=== PATIENT | male | born 1980 | race Caucasian/White ===

== ENCOUNTER 2018-10-23 14:32 | Inpatient (IN) | payer OTHER ==
[~2018-10-23] VITALS: Ht 185.4 cm; Wt 88.2 kg
--- NOTE | 2018-10-23 15:09 | EKG ---
[facility] [address] [place] [address] Test Date: 2018-10-23 Test Time: 14:39:55 Pat Name: MARTINE BROWN Department: Room: Gender: M [employer]: : 1980 Requested By: EDE WOODWARD Order Number: [id number] Reading MD: Syed Wooten Measurements Intervals [place] Rate: 74 P: 42 TN: 132 QRS: 42 QRSD: 94 T: 52 QT: 360 QTc: 400 Interpretive Statements SINUS RHYTHM Electronically Signed On 10-27-2018 9:21:13 CDT by Syed Wooten
--- NOTE | 2018-10-23 15:26 | PHYS DOC ---
Past Medical History Past Medical History: Anxiety, Asthma (ANASTACIO LIMA APRN) Past Surgical History: Other Additional Past Surgical Histo: LEFT ACL REPAIR (ANASTACIO LIMA APRN) Additional Information: CURRENTLY VAPES Alcohol Use: Occasionally Additional Information: 1 DRINK/DAY Drug Use: Marijuana (ANASTACIO LIMA APRN) Adult General Chief Complaint Chief Complaint: CHEST PAIN HPI HPI 38-year-old male presents to ER with complaints of chest tightness which started last night. He reports he has been under stress since divorce in May and so occasionally smokes marijuana. He reports he felt some tightness in his back. He reports he came to ER as today while at work he went on break and while walking again had onset of chest tightness. Pt reports he drove to [place] 3 wks ago. Pt reports he vapes and typically has 1-2 alcoholic beverages nightly. He reports he did mushrooms a few wks ago- denies other illicit drug use. (ANSATACIO LIMA APRN) Review of Systems Review of Systems Constitutional: Denies fever or chills [] Eyes: Denies change in visual acuity, redness, or eye pain [] HENT: Denies nasal congestion or sore throat [] Respiratory: Denies cough or shortness of breath [] Cardiovascular: Reports intermittent chest tightness- denies currently GI: Denies abdominal pain, nausea, vomiting, bloody stools or diarrhea [] : Denies dysuria or hematuria [] Musculoskeletal: Denies neck pain or joint pain. Reports had some tightness in his back with onset of chest tightness- denies currently Integument: Denies rash, swelling or skin lesions [] Neurologic: Denies headache, focal weakness or sensory changes [] Endocrine: Denies polyuria or polydipsia [] Psych: Reports anxiety/stress- denies SI All other systems were reviewed and found to be within normal limits, except as documented in this note. (ANASTACIO LIMA APRN) Current Medications Current Medications Current Medications Medications (Trade) Dose Ordered Sig/Matt Start Time Stop Time Status Last Admin Dose Admin Sodium Chloride 1,000 ml @ 1,000 mls/hr 1X ONCE 10/23/18 16:00 10/23/18 16:59 DC 10/23/18 16:02 1,000 MLS/HR (EDE MCNAIR MD) Allergies Allergies Allergies Coded Allergies Type Severity Reaction Last Updated Verified Penicillins Allergy Intermediate Rash 10/23/18 Yes Sulfa (Sulfonamide Antibiotics) Allergy Intermediate Rash 10/23/18 Yes (EDE MCNAIR MD) Physical Exam Physical Exam Constitutional: Well developed, well nourished, no acute distress, non-toxic appearance. [] HENT: Normocephalic, atraumatic, oropharynx moist, no oral exudates, nose normal. [] Eyes: Pupils equal, conjunctiva normal, no discharge. [] Neck: Normal range of motion, no tenderness, supple, no stridor. [] Cardiovascular: Heart rate regular rhythm, no murmur [] Lungs & Thorax: Bilateral breath sounds clear to auscultation- resp. equal/nonlabored Abdomen: Bowel sounds normal, soft, no tenderness, no masses, no pulsatile masses. [] Skin: Warm, dry, no erythema, no rash. [] Back: No tenderness, no CVA tenderness. [] Extremities: No tenderness, no cyanosis, no clubbing, ROM intact, no edema. [] Neurologic: Alert and oriented X 3, normal motor function, normal sensory function, no focal deficits noted. [] Psychologic: Affect normal, judgement normal, mood normal. [] (REFFITT,ANASTACIO Linares APRN) Current Patient Data Vital Signs Vital Signs Date Time Temp Pulse Resp B/P (MAP) Pulse Ox O2 Delivery O2 Flow Rate FiO2 10/23/18 15:45 74 18 116/69 (85) 97 Room Air 10/23/18 14:47 98.2 98.2 (EDE MCNAIR MD) Lab Values Laboratory Tests Test 10/23/18 15:43 10/23/18 16:00 White Blood Count 10.6 x10^3/uL (4.0-11.0) Red Blood Count 4.99 x10^6/uL (4.30-5.70) Hemoglobin 15.7 g/dL (13.0-17.5) Hematocrit 46.3 % (39.0-53.0) Mean Corpuscular Volume 93 fL (79-100) Mean Corpuscular Hemoglobin 31 pg (25-35) Mean Corpuscular Hemoglobin Concent 34 g/dL (31-37) Red Cell Distribution Width 13.0 % (11.5-14.5) Platelet Count 274 x10^3/uL (140-400) Neutrophils (%) (Auto) 56 % (31-73) Lymphocytes (%) (Auto) 32 % (24-48) Monocytes (%) (Auto) 9 % (0-9) Eosinophils (%) (Auto) 3 % (0-3) Basophils (%) (Auto) 1 % (0-3) Neutrophils # (Auto) 5.9 x10^3uL (1.8-7.7) Lymphocytes # (Auto) 3.3 x10^3/uL (1.0-4.8) Monocytes # (Auto) 0.9 x10^3/uL (0.0-1.1) Eosinophils # (Auto) 0.3 x10^3/uL (0.0-0.7) Basophils # (Auto) 0.1 x10^3/uL (0.0-0.2) Prothrombin Time 13.4 SEC (11.7-14.0) Prothrombin Time INR 1.1 (0.8-1.1) D-Dimer (Valeria) < 0.27 ug/mlFEU Sodium Level 140 mmol/L (136-145) Potassium Level 4.1 mmol/L (3.5-5.1) Chloride Level 102 mmol/L (98-107) Carbon Dioxide Level 30 mmol/L (21-32) Anion Gap 8 (6-14) Blood Urea Nitrogen 21 mg/dL (8-26) Creatinine 1.0 mg/dL (0.7-1.3) Estimated GFR (Cockcroft-Gault) 83.2 BUN/Creatinine Ratio 21 (6-20) H Glucose Level 92 mg/dL (70-99) Calcium Level 9.4 mg/dL (8.5-10.1) Magnesium Level 2.0 mg/dL (1.8-2.4) Total Bilirubin 0.5 mg/dL (0.2-1.0) Aspartate Amino Transferase (AST) 19 U/L (15-37) Alanine Aminotransferase (ALT) 20 U/L (16-63) Alkaline Phosphatase 76 U/L (46-116) Troponin I Quantitative 0.217 ng/mL (0.000-0.055) Total Protein 7.6 g/dL (6.4-8.2) Albumin 3.9 g/dL (3.4-5.0) Albumin/Globulin Ratio 1.1 (1.0-1.7) Urine Collection Type Unknown Urine Color Yellow Urine Clarity Clear Urine pH 7.0 Urine Specific [place] 1.020 Urine Protein Negative mg/dL (NEG-TRACE) Urine Glucose (UA) Negative mg/dL (NEG) Urine Ketones (Stick) Negative mg/dL (NEG) Urine Blood Negative (NEG) Urine Nitrite Negative (NEG) Urine Bilirubin Negative (NEG) Urine Urobilinogen Dipstick 0.2 mg/dL (0.2 mg/dL) Urine Leukocyte Esterase Negative (NEG) Urine RBC 0 /HPF (0-2) Urine WBC 0 /HPF (0-4) Urine Amorphous Sediment Present /HPF Urine Bacteria 0 /HPF (0-FEW) Urine Mucus Mod /LPF Urine Opiates Screen Neg (NEG) Urine Methadone Screen Neg (NEG) Urine Barbiturates Neg (NEG) Urine Phencyclidine Screen Neg (NEG) Urine Amphetamine/Methamphetamine Neg (NEG) Urine Benzodiazepines Screen Neg (NEG) Urine Cocaine Screen Neg (NEG) Urine Cannabinoids Screen Pos (NEG) Urine Ethyl Alcohol Neg (NEG) Laboratory Tests 10/23/18 15:43 Laboratory Tests 10/23/18 15:43 (EDE MCNAIR MD) Lab Values Laboratory Tests Test 10/23/18 15:43 10/23/18 16:00 White Blood Count 10.6 x10^3/uL (4.0-11.0) Red Blood Count 4.99 x10^6/uL (4.30-5.70) Hemoglobin 15.7 g/dL (13.0-17.5) Hematocrit 46.3 % (39.0-53.0) Mean Corpuscular Volume 93 fL (79-100) Mean Corpuscular Hemoglobin 31 pg (25-35) Mean Corpuscular Hemoglobin Concent 34 g/dL (31-37) Red Cell Distribution Width 13.0 % (11.5-14.5) Platelet Count 274 x10^3/uL (140-400) Neutrophils (%) (Auto) 56 % (31-73) Lymphocytes (%) (Auto) 32 % (24-48) Monocytes (%) (Auto) 9 % (0-9) Eosinophils (%) (Auto) 3 % (0-3) Basophils (%) (Auto) 1 % (0-3) Neutrophils # (Auto) 5.9 x10^3uL (1.8-7.7) Lymphocytes # (Auto) 3.3 x10^3/uL (1.0-4.8) Monocytes # (Auto) 0.9 x10^3/uL (0.0-1.1) Eosinophils # (Auto) 0.3 x10^3/uL (0.0-0.7) Basophils # (Auto) 0.1 x10^3/uL (0.0-0.2) Prothrombin Time 13.4 SEC (11.7-14.0) Prothrombin Time INR 1.1 (0.8-1.1) D-Dimer (Valeria) < 0.27 ug/mlFEU Sodium Level 140 mmol/L (136-145) Potassium Level 4.1 mmol/L (3.5-5.1) Chloride Level 102 mmol/L (98-107) Carbon Dioxide Level 30 mmol/L (21-32) Anion Gap 8 (6-14) Blood Urea Nitrogen 21 mg/dL (8-26) Creatinine 1.0 mg/dL (0.7-1.3) Estimated GFR (Cockcroft-Gault) 83.2 BUN/Creatinine Ratio 21 (6-20) H Glucose Level 92 mg/dL (70-99) Calcium Level 9.4 mg/dL (8.5-10.1) Magnesium Level 2.0 mg/dL (1.8-2.4) Total Bilirubin 0.5 mg/dL (0.2-1.0) Aspartate Amino Transferase (AST) 19 U/L (15-37) Alanine Aminotransferase (ALT) 20 U/L (16-63) Alkaline Phosphatase 76 U/L (46-116) Troponin I Quantitative 0.217 ng/mL (0.000-0.055) Total Protein 7.6 g/dL (6.4-8.2) Albumin 3.9 g/dL (3.4-5.0) Albumin/Globulin Ratio 1.1 (1.0-1.7) Urine Collection Type Unknown Urine Color Yellow Urine Clarity Clear Urine pH 7.0 Urine Specific [place] 1.020 Urine Protein Negative mg/dL (NEG-TRACE) Urine Glucose (UA) Negative mg/dL (NEG) Urine Ketones (Stick) Negative mg/dL (NEG) Urine Blood Negative (NEG) Urine Nitrite Negative (NEG) Urine Bilirubin Negative (NEG) Urine Urobilinogen Dipstick 0.2 mg/dL (0.2 mg/dL) Urine Leukocyte Esterase Negative (NEG) Urine RBC 0 /HPF (0-2) Urine WBC 0 /HPF (0-4) Urine Amorphous Sediment Present /HPF Urine Bacteria 0 /HPF (0-FEW) Urine Mucus Mod /LPF Laboratory Tests 10/23/18 15:43 Laboratory Tests 10/23/18 15:43 (ANASTACIO LIMA APRN) EKG EKG EKG obtained 10/23/18 at [address] Mcnair Sinus rhythm Rate 74 No STEMI (ANASTACIO LIMA APRN) Radiology/Procedures Radiology/Procedures PROCEDURE: PORTABLE CHEST 1V EXAM: Chest, single view. HISTORY: Chest pain. COMPARISON: None. FINDINGS: A frontal view of the chest is obtained. There is no infiltrate, pleural effusion or pneumothorax. The heart is normal in size. IMPRESSION: No acute pulmonary finding. Electronically signed by: Veronica Vidales MD (10/23/2018 3:35 PM) [place] [id number] DICTATED and SIGNED BY: VERONICA VIDALES MD DATE: 10/23/181534 (ANASTACIO LIMA APRN) Course & Med Decision Making Course & Med Decision Making Pertinent Labs and Imaging studies reviewed. (See chart for details) 1620: Discussed test results with pt- EKG with no acute ST elevation/STEMI- his troponin is elevated at 0.217- he continues to deny any CP/tightness. Chest xray with no acute findings. Other labs unremarkable. Pt had orthostatic VS which were NL. IV fld bolus was given as pt had reported he hasn't been drinking as much water and does typically have 1-2 alcohol beverages nightly. Discussed admission plan with pt for serial cardiac enzymes and further monitoring- he is agreeable with plan. Will admit to hospitalist and consult cardiology with admit orders. Pt reports he took 325mg aspirin this morning. DDimer is pending. 1630: Spoke with Dr. Taylor, hospitalist and discussed patient's case and admit plan. Pt's d-dimer was normal limit <0.27. Pt's case and plan of care was discussed with Dr. Mcnair. HEART score 2 with pt being a smoker and elevated troponin. (ANASTACIO LIMA APRN) Course & Med Decision Making Staff Physician Addendum: I was working in the ER during the course of this patient's visit. I was available for consultation as needed, but I was not directly involved in the care of this patient. (EDE MCNAIR MD) Dragon Disclaimer Dragon Disclaimer This electronic medical record was generated, in whole or in part, using a voice recognition dictation system. (ANASTACIO LIMA APRN) Departure Departure Impression: Primary Impression: Elevated troponin Additional Impression: Chest tightness Disposition: ADMITTED INPATIENT Admitting Physician: Kartik Flaherty (ANASTACIO LIMA APRN) Condition: STABLE Referrals: UNKNOWN PCP NAME (PCP) Scripts Buspirone Hcl (BUSPIRONE HCL) 5 Mg Tablet 1 TAB PO BID for anxiety for 30 Days, #60 TAB 5 Refills Prov: DOMONIQUE CASTRO MD 10/24/18 Escitalopram Oxalate (LEXAPRO) 5 Mg Tablet 5 MG PO DAILY for Anxiety for 30 Days, #30 TAB 5 Refills Prov: DOMONIQUE CASTRO MD 10/24/18 Metoprolol Succinate (METOPROLOL SUCCINATE ( XL )) 25 Mg Tab.er.24h 12.5 MG PO DAILY for SCAD for 30 Days, #15 TAB.SR 11 Refills Prov: DOMONIQUE CASTRO MD 10/24/18 Clopidogrel Bisulfate (CLOPIDOGREL) 75 Mg Tablet 75 MG PO DAILYWBKFT for SCAD for 30 Days, #30 TAB 11 Refills Prov: DOMONIQUE CASTRO MD 10/24/18 Problem Qualifiers ANASTACIO LIMA APRN Oct 23, 2018 15:26 EDE MCNAIR MD Oct 24, 2018 23:33
--- NOTE | 2018-10-23 15:38 | RAD ---
EXAM: Chest, single view. HISTORY: Chest pain. COMPARISON: None. FINDINGS: A frontal view of the chest is obtained. There is no infiltrate, pleural effusion or pneumothorax. The heart is normal in size. IMPRESSION: No acute pulmonary finding. Electronically signed by: Veronica Garduno MD (10/23/2018 3:35 PM) [place] [id number]
[2018-10-23 15:53] LABS: BASO # 0.1 x10^3/uL (0.0-0.2); BASO % 1 % (0-3); EOS # 0.3 x10^3/uL (0.0-0.7); EOS % 3 % (0-3); HEMATOCRIT 46.3 % (39.0-53.0); HEMOGLOBIN 15.7 g/dL (13.0-17.5); LYMPH # 3.3 x10^3/uL (1.0-4.8); LYMPH % 32 % (24-48); MEAN CORPUSCULAR HEMOGLOBIN 31 pg (25-35); MEAN CORPUSCULAR HGB CONC 34 g/dL (31-37); MEAN CORPUSCULAR VOLUME 93 fL (79-100); MONO # 0.9 x10^3/uL (0.0-1.1); MONO % 9 % (0-9); NEUT # 5.9 x10^3uL (1.8-7.7); NEUT % 56 % (31-73); PLATELET COUNT 274 x10^3/uL (140-400); RED BLOOD COUNT 4.99 x10^6/uL (4.30-5.70); WHITE BLOOD COUNT 10.6 x10^3/uL (4.0-11.0)
[2018-10-23] MEDS ORDERED: IV NORMAL SALINE 1000ML BAG 1,000 ML IV ONE (16:00)
[2018-10-23 16:02] LABS: CALCIUM 9.4 mg/dL (8.5-10.1); GFR 83.2; POTASSIUM 4.1 mmol/L (3.5-5.1); PROTHROMBIN TIME PATIENT 13.4 SEC (11.7-14.0)
[2018-10-23 16:08] LABS: ALBUMIN 3.9 g/dL (3.4-5.0); ALBUMIN/GLOBULIN RATIO 1.1 (1.0-1.7); TOTAL BILIRUBIN 0.5 mg/dL (0.2-1.0); TOTAL PROTEIN 7.6 g/dL (6.4-8.2)
[2018-10-23 16:14] LABS: BILIRUBIN,URINE NEGATIVE (NEG); CLARITY,URINE CLEAR; COLOR,URINE YELLOW; NITRITE,URINE NEGATIVE (NEG); PROTEIN,URINE NEGATIVE (NEG-TRACE); UROBILINOGEN,URINE 0.2 mg/dL (0.2 mg/dL)
[2018-10-23 16:21] LABS: AMORPHOUS SEDIMENT,UR PRESENT /HPF; BACTERIA,URINE 0 /HPF (0-FEW); RBC,URINE 0 /HPF (0-2); WBC,URINE 0 /HPF (0-4)
[2018-10-23 16:41] LABS: AMPHETAMINE/METHAMPHETAMINE NEG (NEG); BARBITURATES NEG (NEG); BENZODIAZEPINES NEG (NEG); CANNABINOIDS POS (NEG); COCAINE NEG (NEG); METHADONE NEG (NEG); OPIATES NEG (NEG); PHENCYCLIDINE NEG (NEG)
[2018-10-23 18:20] VITALS: BP 125/85
--- NOTE | 2018-10-23 19:31 | PDOC1 ---
History and Physical Date of Admission Date of Admission DATE: 10/23/18 TIME: 19:31 Identification/Chief Complaint Chief Complaint 38-year-old male presents to ER with complaints of chest tightness which started last night. He reports he has been under stress since divorce in May and so occasionally smokes marijuana. He reports he felt some tightness in his back. He reports he came to ER as today while at work he went on break and while walking again had onset of chest tightness. PAIN RADIATES TO RIGHT MID-ARM Pt reports he drove to [place] 3 wks ago. Pt reports he vapes and typically has 1-2 alcoholic beverages nightly. He reports he did mushrooms a few wks ago- denies other illicit drug use. Past Medical History Past Medical History Past Medical History Past Medical History Past Medical History: Anxiety, Asthma Past Surgical History: Other Additional Past Surgical Histo: LEFT ACL REPAIR Additional Information: CURRENTLY VAPES REMOTE SMOKER Alcohol Use: Occasionally Additional Information: 1 DRINK/DAY Drug Use: Marijuana family hx MS, MOTHER Family History Family History: High Cholestrol, Hypertension Social History Smoke: Quit ALCOHOL: occassional Drugs: Marijuana Current Problem List Problem List Problems Medical Problems: (1) Chest tightness Status: Acute (2) Elevated troponin Status: Acute Current Medications Current Medications Current Medications Sodium Chloride 1,000 ml @ 1,000 mls/hr 1X ONCE IV Last administered on 10/23/18at 16:02; Start 10/23/18 at 16:00; Stop 10/23/18 at 16:59; Status DC Allergies Allergies: Coded Allergies: Penicillins (Verified Allergy, Intermediate, Rash, 10/23/18) Sulfa (Sulfonamide Antibiotics) (Verified Allergy, Intermediate, Rash, 10/23/18) ROS Review of System Review of Systems Review of Systems Constitutional: Denies fever or chills [] Eyes: Denies change in visual acuity, redness, or eye pain [] HENT: Denies nasal congestion or sore throat [] Respiratory: Denies cough or shortness of breath [] Cardiovascular: Reports intermittent chest tightness- denies currently GI: Denies abdominal pain, nausea, vomiting, bloody stools or diarrhea [] : Denies dysuria or hematuria [] Musculoskeletal: Denies neck pain or joint pain. Reports had some tightness in his back with onset of chest tightness- WITH ACTIVITY Integument: Denies rash, swelling or skin lesions [] Neurologic: Denies headache, focal weakness or sensory changes [] Endocrine: Denies polyuria or polydipsia [] Psych: Reports anxiety/stress- denies SI 14 PT systems were reviewed and found to be within normal limits, except as documented Eyes: No Blurry vision, No Decreased vision, No Double vision, No Dry eyes, No Excessive tearing, No Eye Pain, No Itchy Eyes, No Loss of vision, No Photophobia, No Scotomata, No Uses contacts, No Uses glasses, No Other ALLERGY AND IMMUNOLOGY: No: Hives, Insect Bite Sensitivity, Itchy/Watery Eyes, Nasal Congestion, Post Nasal Drip, Seasonal Allergies, Other Respiratory: No: Cough, Hemoptysis, Orthopnea, Pleuritic Pain, Shortness of breath, SOB with excertion, Sputum Changes, Stridor, Tachypnea, Wheezing, Other Cardiovascular: yes Chest Pain Gastrointestinal: No Nausea, No Vomiting, No Abdominal Pain, No Diarrhea, No Constipation, No Melena, No Hematochezia, No Other Physical Exam Physical Exam Physical Exam Physical Exam Constitutional: Well developed, well nourished, no acute distress, non-toxic appearance. [] HENT: Normocephalic, atraumatic, oropharynx moist, no oral exudates, nose normal. [] Eyes: Pupils equal, conjunctiva normal, no discharge. [] Neck: Normal range of motion, no tenderness, supple, no stridor. [] Cardiovascular: Heart rate regular rhythm, no murmur [] Lungs & Thorax: Bilateral breath sounds clear to auscultation- resp. e qual/nonlabored Abdomen: Bowel sounds normal, soft, no tenderness, no masses, no pulsatile masses. [] Skin: Warm, dry, no erythema, no rash. [] Back: No tenderness, no CVA tenderness. [] Extremities: No tenderness, no cyanosis, no clubbing, ROM intact, no edema. [] Neurologic: Alert and oriented X 3, normal motor function, normal sensory function, no focal deficits noted. [] Psychologic: Affect normal, judgement normal, mood normal. [] General: Alert, Oriented X3, Cooperative HEENT: Atraumatic, PERRLA Lungs: Clear to auscultation Heart: S1S2, RRR, no thrills Breasts: Not examined Abdomen: Soft Rectal Exam: not examined Extremities: No cyanosis Skin: No significant lesion Neuro: Normal speech, Cranial nerves 3-12 NL Psych/Mental Status: Mental status NL, Mood NL Vitals Vitals Vital Signs Date Time Temp Pulse Resp B/P (MAP) Pulse Ox O2 Delivery O2 Flow Rate FiO2 10/23/18 18:20 98.0 60 16 125/85 (98) 98 Room Air 98.0 Labs Labs Laboratory Tests Test 10/23/18 15:43 10/23/18 16:00 White Blood Count 10.6 x10^3/uL (4.0-11.0) Red Blood Count 4.99 x10^6/uL (4.30-5.70) Hemoglobin 15.7 g/dL (13.0-17.5) Hematocrit 46.3 % (39.0-53.0) Mean Corpuscular Volume 93 fL (79-100) Mean Corpuscular Hemoglobin 31 pg (25-35) Mean Corpuscular Hemoglobin Concent 34 g/dL (31-37) Red Cell Distribution Width 13.0 % (11.5-14.5) Platelet Count 274 x10^3/uL (140-400) Neutrophils (%) (Auto) 56 % (31-73) Lymphocytes (%) (Auto) 32 % (24-48) Monocytes (%) (Auto) 9 % (0-9) Eosinophils (%) (Auto) 3 % (0-3) Basophils (%) (Auto) 1 % (0-3) Neutrophils # (Auto) 5.9 x10^3uL (1.8-7.7) Lymphocytes # (Auto) 3.3 x10^3/uL (1.0-4.8) Monocytes # (Auto) 0.9 x10^3/uL (0.0-1.1) Eosinophils # (Auto) 0.3 x10^3/uL (0.0-0.7) Basophils # (Auto) 0.1 x10^3/uL (0.0-0.2) Prothrombin Time 13.4 SEC (11.7-14.0) Prothromb Time International Ratio 1.1 (0.8-1.1) D-Dimer (Valeria) < 0.27 ug/mlFEU Sodium Level 140 mmol/L (136-145) Potassium Level 4.1 mmol/L (3.5-5.1) Chloride Level 102 mmol/L (98-107) Carbon Dioxide Level 30 mmol/L (21-32) Anion Gap 8 (6-14) Blood Urea Nitrogen 21 mg/dL (8-26) Creatinine 1.0 mg/dL (0.7-1.3) Estimated GFR (Cockcroft-Gault) 83.2 BUN/Creatinine Ratio 21 (6-20) Glucose Level 92 mg/dL (70-99) Calcium Level 9.4 mg/dL (8.5-10.1) Magnesium Level 2.0 mg/dL (1.8-2.4) Total Bilirubin 0.5 mg/dL (0.2-1.0) Aspartate Amino Transf (AST/SGOT) 19 U/L (15-37) Alanine Aminotransferase (ALT/SGPT) 20 U/L (16-63) Alkaline Phosphatase 76 U/L (46-116) Troponin I Quantitative 0.217 ng/mL (0.000-0.055) Total Protein 7.6 g/dL (6.4-8.2) Albumin 3.9 g/dL (3.4-5.0) Albumin/Globulin Ratio 1.1 (1.0-1.7) Urine Collection Type Unknown Urine Color Yellow Urine Clarity Clear Urine pH 7.0 Urine Specific [place] 1.020 Urine Protein Negative mg/dL (NEG-TRACE) Urine Glucose (UA) Negative mg/dL (NEG) Urine Ketones (Stick) Negative mg/dL (NEG) Urine Blood Negative (NEG) Urine Nitrite Negative (NEG) Urine Bilirubin Negative (NEG) Urine Urobilinogen Dipstick 0.2 mg/dL (0.2 mg/dL) Urine Leukocyte Esterase Negative (NEG) Urine RBC 0 /HPF (0-2) Urine WBC 0 /HPF (0-4) Urine Amorphous Sediment Present /HPF Urine Bacteria 0 /HPF (0-FEW) Urine Mucus Mod /LPF Urine Opiates Screen Neg (NEG) Urine Methadone Screen Neg (NEG) Urine Barbiturates Neg (NEG) Urine Phencyclidine Screen Neg (NEG) Urine Amphetamine/Methamphetamine Neg (NEG) Urine Benzodiazepines Screen Neg (NEG) Urine Cocaine Screen Neg (NEG) Urine Cannabinoids Screen Pos (NEG) Urine Ethyl Alcohol Neg (NEG) Laboratory Tests Test 10/23/18 15:43 10/23/18 16:00 White Blood Count 10.6 x10^3/uL (4.0-11.0) Red Blood Count 4.99 x10^6/uL (4.30-5.70) Hemoglobin 15.7 g/dL (13.0-17.5) Hematocrit 46.3 % (39.0-53.0) Mean Corpuscular Volume 93 fL (79-100) Mean Corpuscular Hemoglobin 31 pg (25-35) Mean Corpuscular Hemoglobin Concent 34 g/dL (31-37) Red Cell Distribution Width 13.0 % (11.5-14.5) Platelet Count 274 x10^3/uL (140-400) Neutrophils (%) (Auto) 56 % (31-73) Lymphocytes (%) (Auto) 32 % (24-48) Monocytes (%) (Auto) 9 % (0-9) Eosinophils (%) (Auto) 3 % (0-3) Basophils (%) (Auto) 1 % (0-3) Neutrophils # (Auto) 5.9 x10^3uL (1.8-7.7) Lymphocytes # (Auto) 3.3 x10^3/uL (1.0-4.8) Monocytes # (Auto) 0.9 x10^3/uL (0.0-1.1) Eosinophils # (Auto) 0.3 x10^3/uL (0.0-0.7) Basophils # (Auto) 0.1 x10^3/uL (0.0-0.2) Prothrombin Time 13.4 SEC (11.7-14.0) Prothromb Time International Ratio 1.1 (0.8-1.1) D-Dimer (Valeria) < 0.27 ug/mlFEU Sodium Level 140 mmol/L (136-145) Potassium Level 4.1 mmol/L (3.5-5.1) Chloride Level 102 mmol/L (98-107) Carbon Dioxide Level 30 mmol/L (21-32) Anion Gap 8 (6-14) Blood Urea Nitrogen 21 mg/dL (8-26) Creatinine 1.0 mg/dL (0.7-1.3) Estimated GFR (Cockcroft-Gault) 83.2 BUN/Creatinine Ratio 21 (6-20) Glucose Level 92 mg/dL (70-99) Calcium Level 9.4 mg/dL (8.5-10.1) Magnesium Level 2.0 mg/dL (1.8-2.4) Total Bilirubin 0.5 mg/dL (0.2-1.0) Aspartate Amino Transf (AST/SGOT) 19 U/L (15-37) Alanine Aminotransferase (ALT/SGPT) 20 U/L (16-63) Alkaline Phosphatase 76 U/L (46-116) Troponin I Quantitative 0.217 ng/mL (0.000-0.055) Total Protein 7.6 g/dL (6.4-8.2) Albumin 3.9 g/dL (3.4-5.0) Albumin/Globulin Ratio 1.1 (1.0-1.7) Urine Collection Type Unknown Urine Color Yellow Urine Clarity Clear Urine pH 7.0 Urine Specific [place] 1.020 Urine Protein Negative mg/dL (NEG-TRACE) Urine Glucose (UA) Negative mg/dL (NEG) Urine Ketones (Stick) Negative mg/dL (NEG) Urine Blood Negative (NEG) Urine Nitrite Negative (NEG) Urine Bilirubin Negative (NEG) Urine Urobilinogen Dipstick 0.2 mg/dL (0.2 mg/dL) Urine Leukocyte Esterase Negative (NEG) Urine RBC 0 /HPF (0-2) Urine WBC 0 /HPF (0-4) Urine Amorphous Sediment Present /HPF Urine Bacteria 0 /HPF (0-FEW) Urine Mucus Mod /LPF Urine Opiates Screen Neg (NEG) Urine Methadone Screen Neg (NEG) Urine Barbiturates Neg (NEG) Urine Phencyclidine Screen Neg (NEG) Urine Amphetamine/Methamphetamine Neg (NEG) Urine Benzodiazepines Screen Neg (NEG) Urine Cocaine Screen Neg (NEG) Urine Cannabinoids Screen Pos (NEG) Urine Ethyl Alcohol Neg (NEG) VTE Prophylaxis Ordered VTE Prophylaxis Devices: Yes VTE Pharmacological Prophylaxi: Yes Assessment/Plan Assessment/Plan IMPRESSION 1. CHEST PAIN 2. Mildly elevated troponin i 3. remote tobacco abuse 4. THC USE plan admit cvc serial troponin i echo cardiology consult dvt prophylaxis FLP RAFI PEREZ MD Oct 23, 2018 19:31
[2018-10-23] MEDS ORDERED: NITROGLYCERIN SUBLINGUAL 0.4 MG BOTTLE OF 25. SL PRN (19:45)
[2018-10-23] MEDS: ASPIRIN ENTERIC COATED 325 MG TABLET.DR. PO SCH (20:06)
[2018-10-23] MEDS: HEPARIN for SUB-Q USE 5,000 UNIT/ML VIAL. SQ SCH (20:13)
[2018-10-23 23:05] VITALS: BP 119/58
[2018-10-24 03:15] VITALS: BP 108/58
[2018-10-24 05:34] LABS: CHOLESTEROL/HDL RATIO 3.4
[2018-10-24] MEDS: HEPARIN for SUB-Q USE 5,000 UNIT/ML VIAL. SQ SCH (06:13)
[2018-10-24 07:00] VITALS: BP 114/68
--- NOTE | 2018-10-24 09:10 | PDOC2 ---
CINDI GHOTRA COMMERCIAL SALES DIRECTOR 10/24/18 0910: CARDIAC CONSULT DATE OF CONSULT Date of Consult DATE: 10/24/18 TIME: 08:52 REASON FOR CONSULT Reason for Consult: Elevated troponin REFERRING PHYSICIAN Referring Physician: Adolfo SOURCE Source: Chart review, Patient HISTORY OF PRESENT ILLNESS HISTORY OF PRESENT ILLNESS This is a pleasant 38 yo male admitted for complains of chest tightness. Reports the in the last 2 days he has been having chest pain. Described it as chest tightness with achy bilateral arms, SOA, and clamminess. It happened initially 3 days ago with walking. It got better with aspirin. It happened again yesterday with exertion and finally relieved with rest. Both lasted at least about 30 minutes. No significant nausea. No previous MVA, no hx of childhood heart disease, no hx of VTE. No fever or chills. He does felt lightheaded sometimes but brief and no syncope. No recent viral illness. PAST MEDICAL HISTORY Past Medical History Asthma otherwise no other significant medical hx PAST SURGICAL HISTORY Past Surgical History: Arthroscopy (left ACL repair) FAMILY HISTORY Family History None pertinent SOCIAL HISTORY Smoke: # pack years (vaping) ALCOHOL: none Drugs: Marijuana Lives: Alone CURRENT MEDICATIONS CURRENT MEDICATIONS Current Medications Medications (Trade) Dose Ordered Sig/Matt Route PRN Reason Start Time Stop Time Status Last Admin Dose Admin Sodium Chloride 1,000 ml @ 1,000 mls/hr 1X ONCE IV 10/23/18 16:00 10/23/18 16:59 DC 10/23/18 16:02 Aspirin (Ecotrin) 325 mg DAILYWBKFT PO 10/23/18 20:00 10/23/18 20:06 Heparin Sodium (Porcine) (Heparin Sodium) 5,000 unit Q8HRS SQ 10/23/18 20:00 10/24/18 06:13 ALLERGIES ALLERGIES: Coded Allergies: Penicillins (Verified Allergy, Intermediate, Rash, 10/23/18) Sulfa (Sulfonamide Antibiotics) (Verified Allergy, Intermediate, Rash, 10/23/18) ROS Review of System 14 point ROS evaluated with pertinent positives noted per HPI PHYSICAL EXAM General: Alert, Oriented X3, Cooperative, No acute distress HEENT: Atraumatic, Mucous membr. moist/pink Lungs: Clear to auscultation, Normal air movement Heart: Regular rate (SR,SB), Normal S1, Normal S2, No murmurs Abdomen: Soft, No tenderness Extremities: No cyanosis, No edema Skin: No breakdown, No significant lesion Neuro: Normal speech, Sensation intact Psych/Mental Status: Mental status NL, Mood NL MUSCULOSKELETAL: Osteoarthritic changes both hands VITALS VITALS Vital Signs Date Time Temp Pulse Resp B/P (MAP) Pulse Ox O2 Delivery O2 Flow Rate FiO2 10/24/18 03:15 97.9 56 18 108/58 (75) 97 Room Air 97.9 LABS Lab: Laboratory Tests Test 10/23/18 15:43 10/23/18 16:00 10/23/18 20:20 10/23/18 23:10 White Blood Count 10.6 x10^3/uL (4.0-11.0) Red Blood Count 4.99 x10^6/uL (4.30-5.70) Hemoglobin 15.7 g/dL (13.0-17.5) Hematocrit 46.3 % (39.0-53.0) Mean Corpuscular Volume 93 fL (79-100) Mean Corpuscular Hemoglobin 31 pg (25-35) Mean Corpuscular Hemoglobin Concent 34 g/dL (31-37) Red Cell Distribution Width 13.0 % (11.5-14.5) Platelet Count 274 x10^3/uL (140-400) Neutrophils (%) (Auto) 56 % (31-73) Lymphocytes (%) (Auto) 32 % (24-48) Monocytes (%) (Auto) 9 % (0-9) Eosinophils (%) (Auto) 3 % (0-3) Basophils (%) (Auto) 1 % (0-3) Neutrophils # (Auto) 5.9 x10^3uL (1.8-7.7) Lymphocytes # (Auto) 3.3 x10^3/uL (1.0-4.8) Monocytes # (Auto) 0.9 x10^3/uL (0.0-1.1) Eosinophils # (Auto) 0.3 x10^3/uL (0.0-0.7) Basophils # (Auto) 0.1 x10^3/uL (0.0-0.2) Prothrombin Time 13.4 SEC (11.7-14.0) Prothromb Time International Ratio 1.1 (0.8-1.1) D-Dimer (Valeria) < 0.27 ug/mlFEU Sodium Level 140 mmol/L (136-145) Potassium Level 4.1 mmol/L (3.5-5.1) Chloride Level 102 mmol/L (98-107) Carbon Dioxide Level 30 mmol/L (21-32) Anion Gap 8 (6-14) Blood Urea Nitrogen 21 mg/dL (8-26) Creatinine 1.0 mg/dL (0.7-1.3) Estimated GFR (Cockcroft-Gault) 83.2 BUN/Creatinine Ratio 21 (6-20) Glucose Level 92 mg/dL (70-99) Calcium Level 9.4 mg/dL (8.5-10.1) Magnesium Level 2.0 mg/dL (1.8-2.4) Total Bilirubin 0.5 mg/dL (0.2-1.0) Aspartate Amino Transf (AST/SGOT) 19 U/L (15-37) Alanine Aminotransferase (ALT/SGPT) 20 U/L (16-63) Alkaline Phosphatase 76 U/L (46-116) Troponin I Quantitative 0.217 ng/mL (0.000-0.055) 0.195 ng/mL (0.000-0.055) 0.184 ng/mL (0.000-0.055) Total Protein 7.6 g/dL (6.4-8.2) Albumin 3.9 g/dL (3.4-5.0) Albumin/Globulin Ratio 1.1 (1.0-1.7) Urine Collection Type Unknown Urine Color Yellow Urine Clarity Clear Urine pH 7.0 Urine Specific [place] 1.020 Urine Protein Negative mg/dL (NEG-TRACE) Urine Glucose (UA) Negative mg/dL (NEG) Urine Ketones (Stick) Negative mg/dL (NEG) Urine Blood Negative (NEG) Urine Nitrite Negative (NEG) Urine Bilirubin Negative (NEG) Urine Urobilinogen Dipstick 0.2 mg/dL (0.2 mg/dL) Urine Leukocyte Esterase Negative (NEG) Urine RBC 0 /HPF (0-2) Urine WBC 0 /HPF (0-4) Urine Amorphous Sediment Present /HPF Urine Bacteria 0 /HPF (0-FEW) Urine Mucus Mod /LPF Urine Opiates Screen Neg (NEG) Urine Methadone Screen Neg (NEG) Urine Barbiturates Neg (NEG) Urine Phencyclidine Screen Neg (NEG) Urine Amphetamine/Methamphetamine Neg (NEG) Urine Benzodiazepines Screen Neg (NEG) Urine Cocaine Screen Neg (NEG) Urine Cannabinoids Screen Pos (NEG) Urine Ethyl Alcohol Neg (NEG) Test 10/24/18 04:15 Triglycerides Level 98 mg/dL (0-150) Cholesterol Level 166 mg/dL (0-200) LDL Cholesterol, Calculated 97 mg/dL (0-100) VLDL Cholesterol, Calculated 20 mg/dL (0-40) Non-HDL Cholesterol Calculated 117 mg/dL (0-129) HDL Cholesterol 49 mg/dL (40-60) Cholesterol/HDL Ratio 3.4 ASSESSMENT/PLAN ASSESSMENT/PLAN 1. NSTEMI: EKG SR. Typical features. Trop peaked at 0.2. Possible vasopasm, will need to rule out coronary dissection/ACS. 2. Marijuana use 3. Vaping 4. Asymptomatic SB: lowest in the 40s. Recommendations 1. LHC today, risks and benefits discussed and agreeable to proceed. 2. TTE. ASA given. 3. Vaping and marijuana cessation PABLO CELESTE MD 10/24/18 1454: CARDIAC CONSULT ASSESSMENT/PLAN ASSESSMENT/PLAN Patient seen and examined. Agree with CODE ENFORCEMENT SUPERVISOR's assessment and plan. Chest pain with typical features and troponin level very slightly elevated. 2-D echo showed normal LV function without any wall motion abnormalities. Plan for cardiac catheterization for definite evaluation trip. Risks and benefits were explained and he is agreeable. Thank you for your consultation. CINDI GHOTRA APRN Oct 24, 2018 09:10 PABLO CELESTE MD Oct 24, 2018 14:54
[2018-10-24] MEDS ORDERED: IOHEXOL 300 MG/ML 100ML VIAL. ONE (09:15)
--- NOTE | 2018-10-24 09:19 | EKG ---
[facility] [address] [place] [address] Test Date: 2018-10-24 Test Time: 08:49:50 Pat Name: MARTINE BROWN Department: Room: 258 1 Gender: M Mid Level Clinician: AT : 1980 Requested By: CINDI GHOTRA Order Number: [id number] Reading MD: Syed Wooten Measurements Intervals [place] Rate: 54 P: 90 AL: 128 QRS: 24 QRSD: 94 T: 16 QT: 404 QTc: 385 Interpretive Statements SINUS RHYTHM NONSPECIFIC ST-T WAVE CHANGES. Electronically Signed On 10-27-2018 9:40:03 CDT by Syed Wooten
[2018-10-24] MEDS ORDERED: fentaNYL PF VIAL 100 MCG/2 ML VIAL ONE ×2 (09:42)
[2018-10-24] MEDS ORDERED: VERAPAMIL 5 MG/2 ML VIAL. ONE (09:42)
[2018-10-24] MEDS ORDERED: MIDAZOLAM HCL/PF 2 MG/2 ML VIAL. ONE (09:42)
[2018-10-24] MEDS ORDERED: HEPARIN for IV BOLUS 10,000 UNIT/10 ML VIAL. ONE (09:43)
[2018-10-24] MEDS ORDERED: NITROGLYCERIN 200 MCG/2 ML SYRINGE FOR CATH/VASC LAB. ONE (09:43)
[2018-10-24] MEDS ORDERED: HEPARIN for IV BOLUS 10,000 UNIT/10 ML VIAL. IART ONE (10:15)
[2018-10-24] MEDS ORDERED: MIDAZOLAM HCL/PF 2 MG/2 ML VIAL. IV ONE (10:15)
[2018-10-24] MEDS ORDERED: LIDOCAINE 1% PF 2 ML VIAL. INJ ONE (10:15)
[2018-10-24] MEDS ORDERED: NITROGLYCERIN 200 MCG/2 ML SYRINGE FOR CATH/VASC LAB. IART ONE (10:15)
[2018-10-24] MEDS ORDERED: NITROGLYCERIN 200 MCG/2 ML SYRINGE FOR CATH/VASC LAB. ICAR ONE (10:15)
[2018-10-24] MEDS ORDERED: VERAPAMIL 5 MG/2 ML VIAL. IART ONE (10:15)
[2018-10-24] MEDS ORDERED: fentaNYL PF VIAL 100 MCG/2 ML VIAL IV ONE (10:15)
[2018-10-24] MEDS ORDERED: IOHEXOL 300 MG/ML 100ML VIAL. IART ONE (10:15)
[2018-10-24 10:29] VITALS: BP 95/59
[2018-10-24 11:00] VITALS: BP 102/58
--- NOTE | 2018-10-24 11:35 | CARD ---
MR#: [id number] Date of Study: 10/24/2018 Ordering Physician: CINDI GHOTRA, Referring Physician: RAFI PEREZ Tech: Nicole Watson RTR APPROVED REPORT Technologist: Nicole Watson RTR Nurse: Va Powers R.N. Procedure(s) performed: Left heart catheterization, selective coronary angiography and left ventricul ar atrophy via right transradial approach Moderate Sedation time: 30 minutes Fluoro time: 4.9 min Dose: 49 GYCM2 Contrast: 112 INDICATION The indication(s) include : unstable angina . CSHA Clinical Frailty Scale CSHA Clinical Frailty Scale: Very Fit Heart Failure Heart Failure: No PROCEDURE NARRATIVE After explaining the risks, benefits and alternative options, informed consent was obtained from lizbeth ent. Patient was brought to the cardiac Muffler Tender and right wrist was prepped and draped in the usual fashion after confirming a positive modified Eh's test. Arterial access was obtained in the [facility] t radial artery and a 6 Lao sheath was inserted. 6 Lao Jose Angel catheter was used to perform peggy ective angiography of the left and right coronary arteries. The same catheter was used to perform lef t ventriculography. Patient tolerated the procedure well. Hemostasis was achieved using TR band. T here were no immediate complications. The following findings were noted. FINDINGS 1. Hemodynamics: Left ventricular end-diastolic pressure of 14 mmHg. No pullback gradient across th e aortic valve. 2. Left ventriculography: Normal left ventricle systolic function with ejection fraction estimated at 60%. No significant mitral regurgitation seen. 3. Coronary angiography: a. The left main coronary artery arose from the left sinus of Valsalva, gave rise to the left anteri or descending and left circumflex arteries and did not show any significant stenosis. b. The left anterior descending artery did not show any significant stenosis. c. The left circumflex artery showed spontaneous coronary artery dissection involving lower division of the obtuse marginal branch which is a small caliber vessel, resulting in 90-95% stenosis severity . This did not resolve with intracoronary nitroglycerin injections ruling out vasospasm. d. The right coronary artery was a large and dominant vessel arising from the right sinus of Valsalv a that did not show any significant stenosis. Conclusion 1. 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 No major vessel stenose s were noted. 2. Normal left ventricle systolic function with ejection fraction estimated at 60%. Recommendations Medical Therapy Signed by : Leonidas Cain, Electronically Approved : 10/24/2018 11:06:35
--- NOTE | 2018-10-24 11:35 | CARD ---
MR#: [id number] Date of Study: 10/24/2018 Ordering Physician: RAFI PEREZ, Referring Physician: RAFI PEREZ Tech: Emily Fernandez RDCS APPROVED REPORT EXAM: Two-dimensional and M-mode echocardiogram with Doppler and color Doppler. Other Information Quality : Good INDICATION Chest Pain 2D DIMENSIONS RVDd2.2 (2.9-3.5cm)Left Atrium(2D)3.6 (1.6-4.0cm) IVSd0.9 (0.7-1.1cm)Aortic Root(2D)2.8 (2.0-3.7cm) LVDd5.4 (3.9-5.9cm)LVOT Diameter2.1 (1.8-2.4cm) PWd0.8 (0.7-1.1cm)LVDs4.0 (2.5-4.0cm) FS (%) 25.7 %SV69.8 ml LVEF(%)50.1 (>50%) Aortic Valve AoV Peak Macho.122.9cm/sAoV VTI23.9cm AO Peak GR.6.0mmHgLVOT Peak Macho.114.0cm/s AO Mean GR.4mmHgAVA (VMAX)3.34cm2 FIDEL (VTI)3.30cm2 Mitral Valve MV E Vyvceinr47.7cm/sMV DECEL IHYX067ef MV A Scmehkub31.6cm/sE/A Ratio1.7 Tricuspid Valve TR P. Mfylhmdu690pq/sRAP ERUNPWNI5myOy TR Peak Gr.81wsAuGJIK06ckFi Pulmonary Vein S1 Eacbpobp53.0cm/sD2 Imydkuvm11.6cm/s LEFT VENTRICLE The left ventricle is normal size. There is normal left ventricular wall thickness. The left ventricu lar systolic function is normal. The Ejection Fraction is 55-60%. There is normal LV segmental wall m otion. The left ventricular diastolic function and filling is normal for age. RIGHT VENTRICLE The right ventricle is normal size. The right ventricular systolic function is normal. ATRIA The left atrium size is normal. The right atrium size is normal. The interatrial septum is intact wit h no evidence for an atrial septal defect or patent foramen ovale as noted on 2-D or Doppler imaging. AORTIC VALVE The aortic valve is normal in structure and function. Doppler and Color Flow revealed no significant aortic regurgitation. There is no significant aortic valvular stenosis. MITRAL VALVE The mitral valve is normal in structure and function. There is no evidence of mitral valve prolapse. There is no mitral valve stenosis. Doppler and Color-flow revealed trace mitral regurgitation. TRICUSPID VALVE The tricuspid valve is normal in structure and function. Doppler and Color Flow revealed trace tricus pid regurgitation. The PA pressure was estimated at 24 mmHg. There is no tricuspid valve stenosis. PULMONIC VALVE The pulmonary valve is normal in structure and function. Doppler and Color Flow revealed no pulmonic valvular regurgitation. There is no pulmonic valvular stenosis. GREAT VESSELS The aortic root is normal in size. The ascending aorta is normal in size. The IVC is normal in size a nd collapses >50% with inspiration. PERICARDIAL EFFUSION There is no evidence of significant pericardial effusion. Critical Notification Critical Value: No <Conclusion> The left ventricular systolic function is normal. The Ejection Fraction is 55-60%. There is normal LV segmental wall motion. Trace mitral regurgitation. Trace tricuspid regurgitation. The PA pressure was estimated at 24 mmHg. There is no evidence of significant pericardial effusion. Signed by : Leonidas Cain, Electronically Approved : 10/24/2018 10:53:07
--- NOTE | 2018-10-24 11:58 | PDOC3 ---
Discharge Summary Visit Information Date of Admission: Oct 23, 2018 Date of Discharge: Oct 24, 2018 Admitting Diagnosis: Chest pain Final Diagnosis Problems Medical Problems: (1) Chest tightness Status: Acute (2) Elevated troponin Status: Acute Brief Hospital Course Allergies Allergies Coded Allergies Type Severity Reaction Last Updated Verified Penicillins Allergy Intermediate Rash 10/23/18 Yes Sulfa (Sulfonamide Antibiotics) Allergy Intermediate Rash 10/23/18 Yes Vital Signs Vital Signs Date Time Temp Pulse Resp B/P (MAP) Pulse Ox O2 Delivery O2 Flow Rate FiO2 10/24/18 10:29 53 11 96 Room Air 10/24/18 10:15 2.0 10/24/18 07:00 97.9 114/68 (83) 97.9 Lab Results Laboratory Tests Test 10/23/18 15:43 10/23/18 16:00 10/23/18 20:20 10/23/18 23:10 White Blood Count 10.6 x10^3/uL (4.0-11.0) Red Blood Count 4.99 x10^6/uL (4.30-5.70) Hemoglobin 15.7 g/dL (13.0-17.5) Hematocrit 46.3 % (39.0-53.0) Mean Corpuscular Volume 93 fL (79-100) Mean Corpuscular Hemoglobin 31 pg (25-35) Mean Corpuscular Hemoglobin Concent 34 g/dL (31-37) Red Cell Distribution Width 13.0 % (11.5-14.5) Platelet Count 274 x10^3/uL (140-400) Neutrophils (%) (Auto) 56 % (31-73) Lymphocytes (%) (Auto) 32 % (24-48) Monocytes (%) (Auto) 9 % (0-9) Eosinophils (%) (Auto) 3 % (0-3) Basophils (%) (Auto) 1 % (0-3) Neutrophils # (Auto) 5.9 x10^3uL (1.8-7.7) Lymphocytes # (Auto) 3.3 x10^3/uL (1.0-4.8) Monocytes # (Auto) 0.9 x10^3/uL (0.0-1.1) Eosinophils # (Auto) 0.3 x10^3/uL (0.0-0.7) Basophils # (Auto) 0.1 x10^3/uL (0.0-0.2) Prothrombin Time 13.4 SEC (11.7-14.0) Prothromb Time International Ratio 1.1 (0.8-1.1) D-Dimer (Valeria) < 0.27 ug/mlFEU Sodium Level 140 mmol/L (136-145) Potassium Level 4.1 mmol/L (3.5-5.1) Chloride Level 102 mmol/L (98-107) Carbon Dioxide Level 30 mmol/L (21-32) Anion Gap 8 (6-14) Blood Urea Nitrogen 21 mg/dL (8-26) Creatinine 1.0 mg/dL (0.7-1.3) Estimated GFR (Cockcroft-Gault) 83.2 BUN/Creatinine Ratio 21 (6-20) Glucose Level 92 mg/dL (70-99) Calcium Level 9.4 mg/dL (8.5-10.1) Magnesium Level 2.0 mg/dL (1.8-2.4) Total Bilirubin 0.5 mg/dL (0.2-1.0) Aspartate Amino Transf (AST/SGOT) 19 U/L (15-37) Alanine Aminotransferase (ALT/SGPT) 20 U/L (16-63) Alkaline Phosphatase 76 U/L (46-116) Troponin I Quantitative 0.217 ng/mL (0.000-0.055) 0.195 ng/mL (0.000-0.055) 0.184 ng/mL (0.000-0.055) Total Protein 7.6 g/dL (6.4-8.2) Albumin 3.9 g/dL (3.4-5.0) Albumin/Globulin Ratio 1.1 (1.0-1.7) Urine Collection Type Unknown Urine Color Yellow Urine Clarity Clear Urine pH 7.0 Urine Specific [place] 1.020 Urine Protein Negative mg/dL (NEG-TRACE) Urine Glucose (UA) Negative mg/dL (NEG) Urine Ketones (Stick) Negative mg/dL (NEG) Urine Blood Negative (NEG) Urine Nitrite Negative (NEG) Urine Bilirubin Negative (NEG) Urine Urobilinogen Dipstick 0.2 mg/dL (0.2 mg/dL) Urine Leukocyte Esterase Negative (NEG) Urine RBC 0 /HPF (0-2) Urine WBC 0 /HPF (0-4) Urine Amorphous Sediment Present /HPF Urine Bacteria 0 /HPF (0-FEW) Urine Mucus Mod /LPF Urine Opiates Screen Neg (NEG) Urine Methadone Screen Neg (NEG) Urine Barbiturates Neg (NEG) Urine Phencyclidine Screen Neg (NEG) Urine Amphetamine/Methamphetamine Neg (NEG) Urine Benzodiazepines Screen Neg (NEG) Urine Cocaine Screen Neg (NEG) Urine Cannabinoids Screen Pos (NEG) Urine Ethyl Alcohol Neg (NEG) Test 10/24/18 04:15 Triglycerides Level 98 mg/dL (0-150) Cholesterol Level 166 mg/dL (0-200) LDL Cholesterol, Calculated 97 mg/dL (0-100) VLDL Cholesterol, Calculated 20 mg/dL (0-40) Non-HDL Cholesterol Calculated 117 mg/dL (0-129) HDL Cholesterol 49 mg/dL (40-60) Cholesterol/HDL Ratio 3.4 Laboratory Tests Test 10/23/18 15:43 10/23/18 16:00 10/23/18 20:20 10/23/18 23:10 White Blood Count 10.6 x10^3/uL (4.0-11.0) Red Blood Count 4.99 x10^6/uL (4.30-5.70) Hemoglobin 15.7 g/dL (13.0-17.5) Hematocrit 46.3 % (39.0-53.0) Mean Corpuscular Volume 93 fL (79-100) Mean Corpuscular Hemoglobin 31 pg (25-35) Mean Corpuscular Hemoglobin Concent 34 g/dL (31-37) Red Cell Distribution Width 13.0 % (11.5-14.5) Platelet Count 274 x10^3/uL (140-400) Neutrophils (%) (Auto) 56 % (31-73) Lymphocytes (%) (Auto) 32 % (24-48) Monocytes (%) (Auto) 9 % (0-9) Eosinophils (%) (Auto) 3 % (0-3) Basophils (%) (Auto) 1 % (0-3) Neutrophils # (Auto) 5.9 x10^3uL (1.8-7.7) Lymphocytes # (Auto) 3.3 x10^3/uL (1.0-4.8) Monocytes # (Auto) 0.9 x10^3/uL (0.0-1.1) Eosinophils # (Auto) 0.3 x10^3/uL (0.0-0.7) Basophils # (Auto) 0.1 x10^3/uL (0.0-0.2) Prothrombin Time 13.4 SEC (11.7-14.0) Prothromb Time International Ratio 1.1 (0.8-1.1) D-Dimer (Valeria) < 0.27 ug/mlFEU Sodium Level 140 mmol/L (136-145) Potassium Level 4.1 mmol/L (3.5-5.1) Chloride Level 102 mmol/L (98-107) Carbon Dioxide Level 30 mmol/L (21-32) Anion Gap 8 (6-14) Blood Urea Nitrogen 21 mg/dL (8-26) Creatinine 1.0 mg/dL (0.7-1.3) Estimated GFR (Cockcroft-Gault) 83.2 BUN/Creatinine Ratio 21 (6-20) Glucose Level 92 mg/dL (70-99) Calcium Level 9.4 mg/dL (8.5-10.1) Magnesium Level 2.0 mg/dL (1.8-2.4) Total Bilirubin 0.5 mg/dL (0.2-1.0) Aspartate Amino Transf (AST/SGOT) 19 U/L (15-37) Alanine Aminotransferase (ALT/SGPT) 20 U/L (16-63) Alkaline Phosphatase 76 U/L (46-116) Troponin I Quantitative 0.217 ng/mL (0.000-0.055) 0.195 ng/mL (0.000-0.055) 0.184 ng/mL (0.000-0.055) Total Protein 7.6 g/dL (6.4-8.2) Albumin 3.9 g/dL (3.4-5.0) Albumin/Globulin Ratio 1.1 (1.0-1.7) Urine Collection Type Unknown Urine Color Yellow Urine Clarity Clear Urine pH 7.0 Urine Specific [place] 1.020 Urine Protein Negative mg/dL (NEG-TRACE) Urine Glucose (UA) Negative mg/dL (NEG) Urine Ketones (Stick) Negative mg/dL (NEG) Urine Blood Negative (NEG) Urine Nitrite Negative (NEG) Urine Bilirubin Negative (NEG) Urine Urobilinogen Dipstick 0.2 mg/dL (0.2 mg/dL) Urine Leukocyte Esterase Negative (NEG) Urine RBC 0 /HPF (0-2) Urine WBC 0 /HPF (0-4) Urine Amorphous Sediment Present /HPF Urine Bacteria 0 /HPF (0-FEW) Urine Mucus Mod /LPF Urine Opiates Screen Neg (NEG) Urine Methadone Screen Neg (NEG) Urine Barbiturates Neg (NEG) Urine Phencyclidine Screen Neg (NEG) Urine Amphetamine/Methamphetamine Neg (NEG) Urine Benzodiazepines Screen Neg (NEG) Urine Cocaine Screen Neg (NEG) Urine Cannabinoids Screen Pos (NEG) Urine Ethyl Alcohol Neg (NEG) Test 10/24/18 04:15 Triglycerides Level 98 mg/dL (0-150) Cholesterol Level 166 mg/dL (0-200) LDL Cholesterol, Calculated 97 mg/dL (0-100) VLDL Cholesterol, Calculated 20 mg/dL (0-40) Non-HDL Cholesterol Calculated 117 mg/dL (0-129) HDL Cholesterol 49 mg/dL (40-60) Cholesterol/HDL Ratio 3.4 Brief Hospital Course Mr Stein is a 38-year-old male presents to ER with complaints of chest tightness which started last night. He reports he has been under stress since divorce in May and so occasionally smokes marijuana. He reports he felt some tightness in his back. He reports he came to ER as today while at work he went on break and while walking again had onset of chest tightness. PAIN RADIATES TO RIGHT MID-ARM Pt reports he drove to [place] 3 wks ago. Pt reports he vapes tobacco and typically has 1-2 alcoholic beverages nightly. He reports he did mushrooms a few wks ago- denies other illicit drug use. In ED EKG was normal sinus with no ST or T wave abnormalities. However, troponin was 0.2 and he went to the cardiac collaborative teacher, found with SCAD. Echo was WNL. Cardiology recommends medical therapy. He has prescriptions for SCAD treatment of metoprolol XL 12.5mg daily, plavix 75mg 1 year, ASA 81mg daily, cardiology f/u in 1 month. Reduce max exercise to 50% of goal HR and SBP < 130mmHg to avoid future MO. Given lexapro and buspar for his anxiety and acute grief reaction from his finalized divorce last March 2018 and shared custody of his 3year old samir riggs 1. Hemodynamics: Left ventricular end-diastolic pressure of 14 mmHg. No pullback gradient across the aortic valve. 2. Left ventriculography: Normal left ventricle systolic function with ejection fraction estimated at 60%. No significant mitral regurgitation seen. 3. Coronary angiography: a. The left main coronary artery arose from the left sinus of Valsalva, gave rise to the left anterior descending and left circumflex arteries and did not show any significant stenosis. b. The left anterior descending artery did not show any significant stenosis. c. The left circumflex artery showed spontaneous coronary artery dissection involving lower division of the obtuse marginal branch which is a small caliber vessel, resulting in 90-95% stenosis severity. This did not resolve with intracoronary nitroglycerin injections ruling out vasospasm. d. The right coronary artery was a large and dominant vessel arising from the right sinus of Valsalva that did not show any significant stenosis. Conclusion 1. 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 No major vessel stenoses were noted. 2. Normal left ventricle systolic function with ejection fraction estimated at 60%. GREATER THAN 30 MINUTES SPENT ON D/C PE General: Alert, Oriented X3, Cooperative HEENT: Atraumatic, PERRLA Lungs: Clear to auscultation Heart: S1S2, RRR, no thrills Breasts: Not examined Abdomen: Soft Rectal Exam: not examined Extremities: No cyanosis Skin: No significant lesion Neuro: Normal speech, Cranial nerves 3-12 NL Psych/Mental Status: Mental status NL, Mood NL Discharge Information Condition at Discharge: Improved Follow Up: Weeks (2) Disposition/Orders: D/C to Home Scheduled Buspirone Hcl (Buspirone Hcl) 5 Mg Tablet, 1 TAB PO BID for anxiety for 30 Days, #60 Ref 5 Prescribed by: DOMONIQUE CASTRO MD on 10/24/18 1218 Clopidogrel Bisulfate (Clopidogrel) 75 Mg Tablet, 75 MG PO DAILYWBKFT for SCAD for 30 Days, #30 Ref 11 Prescribed by: DOMONIQUE CASTRO MD on 10/24/18 1218 Escitalopram Oxalate (Lexapro) 5 Mg Tablet, 5 MG PO DAILY for Anxiety for 30 Days, #30 Ref 5 Prescribed by: DOMONIQUE CASTRO MD on 10/24/18 1218 Metoprolol Succinate (Metoprolol Succinate ( Xl )) 25 Mg Tab.er.24h, 12.5 MG PO DAILY for SCAD for 30 Days, #15 Ref 11 Prescribed by: DOMONIQUE CASTRO MD on 10/24/18 1218 DOMONIQUE CASTRO MD Oct 24, 2018 11:58
[2018-10-24] MEDS ORDERED: BUSP5TAB PO (12:18)
[2018-10-24] MEDS ORDERED: ESCITALOPRAM OXA5 MG PO (12:18)
[2018-10-24] MEDS ORDERED: CLOP75TA PO (12:18)
[2018-10-24] MEDS ORDERED: METO-239 PO (12:18)
[2018-10-24 13:03] VITALS: BP 102/58
[2018-10-24] MEDS: ASPIRIN ENTERIC COATED 325 MG TABLET.DR. PO SCH (13:04)
[2018-10-24] MEDS ORDERED: CLOPIDOGREL BISULFATE 75 MG TABLET PO SCH (13:30)
[2018-10-24] MEDS ORDERED: METOPROLOL SUCC 24HR ER 25 MG TAB.ER.24H. PO SCH (13:30)
--- NOTE | 2018-10-24 17:26 | NUR ---
Discharge Note: MARTINE BROWN Discharge instructions and discharge home medications reviewed with Patient and a copy given. All questions have been answered and understanding verbalized. The following instructions and handouts were given: bleeding, post cath, hypotention, medications, and follow up. Discontinued lines and drains: IV removed, no lines. Patient discharged to home via private vehicle.
== END 2018-10-24 17:10 | disposition home or self-care (01) | DRG 280 ==
LOC: ER 14:32 → 2 SOUTH 16:25
PROVIDERS: ADMIT Family Medicine; ATTEND Family Medicine
PROC: 4A023N7 Measurement of Cardiac Sampling and Pressure, Left Heart, Percutaneous Approach (ICD-10-PCS; principal; 2018-10-24)
PROC: B2111ZZ Fluoroscopy of Multiple Coronary Arteries using Low Osmolar Contrast (ICD-10-PCS; 2018-10-24)
PROC: B2151ZZ Fluoroscopy of Left Heart using Low Osmolar Contrast (ICD-10-PCS; 2018-10-24)
DX: I21.4 Non-ST elevation (NSTEMI) myocardial infarction (principal); I25.42 Coronary artery dissection; F12.90 Cannabis use, unspecified, uncomplicated; F41.9 Anxiety disorder, unspecified; J45.909 Unspecified asthma, uncomplicated; F17.200 Nicotine dependence, unspecified, uncomplicated; Z88.0 Allergy status to penicillin; Z88.2 Allergy status to sulfonamides; Z79.82 Long term (current) use of aspirin; Z82.49 Family history of ischemic heart disease and other diseases of the circulatory system
CPT/HCPCS: 36415; 71045; 80053; 80061; 80307; 81001; 83735; 84484; 85025; 85379; 85610; 93005; 93306; 93458; 96360; 96372; 99152; 99153; C1769; C1892; J1644; J2250; J3010; J3490; J7030; Q9967; 99285-25

== ENCOUNTER → 2020-01-08 | Outpatient (CLI) | payer OTHER ==
[~2020-01-08] MED LIST: BUSP5TAB PO; CLOP75TA PO; ESCITALOPRAM OXA5 MG PO; METO-239 PO
--- NOTE | 2020-01-08 12:41 | CARD ---
MR#: [id number] Date of Study: 01/08/2020 Ordering Physician: PABLO CELESTE, Referring Physician: PABLO CELESTE Tech: Emily Fernandez RDCS APPROVED REPORT EXAM: Two-dimensional and M-mode echocardiogram with Doppler and color Doppler. Other Information Quality : Good INDICATION Coronary Artery Dissection 2D DIMENSIONS RVDd2.3 (2.9-3.5cm)Left Atrium(2D)3.0 (1.6-4.0cm) IVSd0.9 (0.7-1.1cm)Aortic Root(2D)2.4 (2.0-3.7cm) LVDd4.9 (3.9-5.9cm)LVOT Diameter2.2 (1.8-2.4cm) PWd0.8 (0.7-1.1cm)LVDs3.4 (2.5-4.0cm) FS (%) 30.1 %SV63.6 ml LVEF(%)55.0 (>50%) Aortic Valve AoV Peak Macho.143.0cm/sAoV VTI29.4cm AO Peak GR.8.2mmHgLVOT Peak Macho.128.1cm/s LVOT VTI 25.32cmAO Mean GR.5mmHg FIDEL (VMAX)3.97lp5OLT (VTI)3.26cm2 Mitral Valve MV E Nzptvfyv33.6cm/sMV DECEL [id number] MV A Zoinvrky13.1cm/sMV PVM60wh E/A Ratio1.5MVA (PHT)3.52cm2 TDI E/Lateral E'4.1E/Medial E'7.4 Pulmonary Vein S1 Emepzpfx63.7cm/sD2 Whgkgwjp99.5cm/s LEFT VENTRICLE The left ventricle is normal size. There is normal left ventricular wall thickness. Left ventricle sy stolic function is normal. The Ejection Fraction is 55-60%. There is normal LV segmental wall motion. RIGHT VENTRICLE The right ventricle is normal size. The right ventricular systolic function is normal. ATRIA The left atrium size is normal. The right atrium size is normal. The interatrial septum is intact wit h no evidence for an atrial septal defect or patent foramen ovale as noted on 2-D or Doppler imaging. AORTIC VALVE The aortic valve is normal in structure and function. Doppler and Color Flow revealed no significant aortic regurgitation. There is no significant aortic valvular stenosis. MITRAL VALVE The mitral valve is normal in structure and function. There is no evidence of mitral valve prolapse. There is no mitral valve stenosis. Doppler and Color-flow revealed trace mitral regurgitation. TRICUSPID VALVE The tricuspid valve is normal in structure and function. Doppler and Color Flow revealed trace tricus pid regurgitation. There is no tricuspid valve stenosis. PULMONIC VALVE The pulmonary valve is normal in structure and function. Doppler and Color Flow revealed no pulmonic valvular regurgitation. There is no pulmonic valvular stenosis. GREAT VESSELS The aortic root is normal in size. The ascending aorta is normal in size. The IVC is normal in size a nd collapses >50% with inspiration. PERICARDIAL EFFUSION There is no evidence of significant pericardial effusion. Critical Notification Critical Value: No <Conclusion> Left ventricle systolic function is normal. The Ejection Fraction is 55-60%. There is normal LV segmental wall motion. Trace mitral regurgitation. Trace tricuspid regurgitation. There is no evidence of significant pericardial effusion. Signed by : Pablo Celeste, Electronically Approved : 01/08/2020 12:41:28
== END | disposition home or self-care (01) ==
LOC: ECHO 09:36
PROVIDERS: ATTEND Internal Medicine Cardiovascular Disease
DX: I25.42 Coronary artery dissection (principal)
CPT/HCPCS: 93306

== ENCOUNTER → 2021-01-27 | Outpatient (CLI) | payer OTHER ==
--- NOTE | 2021-01-27 16:40 | CARD ---
MR#: [id number] Date of Study: 01/27/2021 Ordering Physician: PABLO CELESTE, Referring Physician: PABLO CELESTE, Tech: Loretta Gonzalez, CS APPROVED REPORT INDICATION Cardiac Disease: CAD Previous smoker, Asthma Reason : Patient complained of pain PROCEDURE The patient underwent an Exercise Stress Test using the Juanpablo Protocol. Blood pressure, heart rate, a nd EKG were monitored. An Echocardiogram was performed by home theatre technician in four stages in quad fashion. At peak stress four se lected images were obtained and placed side by side with resting images for comparison. STRESS ECHO FINDINGS The resting Echocardiogram showed normal left ventricular systolic contractility with an estimated Ej ection Fraction of about 55 %. The Resting Echocardiogram showed normal augmentation of myocardial wall segments using a 16 segment model. The Stress Echocardiogram showed normal augmentation of myocardial wall segments using a 16 segment m aydin. The Stress Echocardiogram left ventricular systolic contractility has an estimated Ejection Fraction of about 70%. Test Type: Exercise Stress Nurse/Tech: Va Powers R.N. Test Indications: CAD Cardiac History and Allergies: HTN, Medications: METOPROLOL, ASA Medical History: ASTHMA Resting ECG: SR Resting Heart Rate: 62 bpm Resting Blood Pressure: 131/78mmHg Pretest Chest Pain: No chest pain Nurse/Tech Notes lungs cta, heart tones regular Stress Symptoms No chest pain or symptoms. POST EXERCISE Reason for Termination: Reached target heart rate Target HR: Yes Max HR: 167 bpm 93% of Maximum Predicted HR: 179 bpm Exercise duration: 11:39 min:sec, 4 Stage Exercise capacity: 12.8METs Max Blood Pressure: 163/69mmHg Blood Pressure response to exercise: Normal blood pressure response during stress. Heart Rate response to exercise: normal Chest Pain: No. Arrhythmia: No. ST Change: Yes. ST depression noted in Lead 3-4 during peak exercise, resolved during recovery period INTERPRETATION Stress EKG Conclusion: No evidence of stress induced EKG changes. Preliminary Notification Critical Value: No <Conclusion> Normal resting wall motion and EF. Normal resting EKG. Normal stress EKG with good exercise capacity of 12.8 Mets Normal stress wall motion and EF. Low risk study overall. Signed by : Honey Priceally Approved : 01/27/2021 16:40:24
== END ==
LOC: ECHO 12:33
PROVIDERS: ATTEND Internal Medicine Cardiovascular Disease
DX: I25.42 Coronary artery dissection (principal)
CPT/HCPCS: 93017; 93350